=== PATIENT | male | born 1940 | race Caucasian/White ===

== ENCOUNTER 2017-07-21 15:06 | Emergency (ER) | payer MEDICARE, OTHER ==
[2017-07-21 16:00] LABS: #Eosinphils 0.1 thou/uL (0.0-0.7); #Lymphocytes 1.2 thou/uL (1.20-3.40); #Monocytes 0.6 thou/uL (0.11-0.59); %Basophils 0.4 % (0.0-1.0); %Eosinophils 1.7 % (0.0-10.0); %Lymphocytes 17.2 % (21.0-51.0); %Monocytes 8.5 % (0.0-10.0); %Neutrophils 72.2 % (42.0-75.0); Hemoglobin 14.8 g/dL (14.0-18.0); Mean Corpuscular HGB CONC 33.4 g/dL (32.0-36.0); Mean Corpuscular Hemoglobin 31.9 pg (27.0-31.0); Mean Corpuscular Volume 95.6 fl (80.0-94.0); Mean Platelet Volume 6.5 fL (7.4-10.4); Platelet Count 212 thou/uL (130-400); RBC Distribution Width 12.6 % (11.5-14.5); Red Blood Cell (RBC) Count 4.63 mill/uL (4.70-6.10)
--- NOTE | 2017-07-21 16:20 | CT ---
CT BRAIN WITHOUT CONTRAST: 07/21/17 HISTORY: Injury, syncope, fall, headache. FINDINGS: Comparison made with exam of 05/27/16. No evidence of acute infarct, hemorrhage, midline shift of abnormal extra-axial fluid collections are seen. The ventricular size is stable and the basilar cisterns patent. The bony calvarium is intact. The visualized paranasal sinuses and mastoid air cells are well aerated. There is small soft tissue h ematoma in the left frontal scalp. IMPRESSION: No CT evidence of acute intracranial process. POS: [facility]
--- NOTE | 2017-07-21 16:22 | CT ---
CT CERVICAL SPINE WITHOUT CONTRAST: 07/21/17 HISTORY: Trauma, syncopal episode. COMPARISON: CT cervical spine 01/22/16. FINDINGS: Mastoids are clear. Visualized sphenoid sinuses are unremarkable. Odontoid process is intact. The cervical spine is without acute fracture or malalignment. Moderate degenerative disc space disease at C5-6 and C6-7. Prominent venous eldridge left occipital bone. Thyroid is unremarkable. Lung apices are clear. IMPRESSION: No acute fracture or malalignment cervical spine. POS: [facility]
[2017-07-21 16:26] LABS: ALT (SGPT) 13 U/L (8-55); AST (SGOT) 12 U/L (5-34); Alkaline Phosphatase 55 U/L (40-150); Anion Gap 12 mmol/L (10-20); BUN (Urea Nitrogen) 19 mg/dL (8.4-25.7); Bilirubin, Total 0.7 mg/dL (0.2-1.2); Calc. Creatinine Clearance 0 mL/min (70-130); Calcium 9.3 mg/dL (7.8-10.44); Carbon Dioxide 28 mmol/L (23-31); Chloride 105 mmol/L (98-107); Estimated GFR-MDRD 80; Globulin 2.8 g/dL (2.4-3.5); Glucose 89 mg/dL (83-110); Protein, Total 6.8 g/dL (5.8-8.1); Sodium 141 mmol/L (136-145)
== END 2017-07-21 17:07 | disposition home or self-care (01) ==
LOC: ERS 15:06
DX: S01.81XA Laceration without foreign body of other part of head, initial encounter (principal); E78.5 Hyperlipidemia, unspecified; F32.9 Major depressive disorder, single episode, unspecified; I25.2 Old myocardial infarction; I10 Essential (primary) hypertension; N40.0 Benign prostatic hyperplasia without lower urinary tract symptoms; W19.XXXA Unspecified fall, initial encounter; Y92.000 Kitchen of unspecified non-institutional (private) residence as the place of occurrence of the external cause
CPT/HCPCS: 70450; 72125; 80053; 85025; 93005; 94760

== ENCOUNTER 2018-01-09 18:37 | Observation (INO) | payer MEDICARE, OTHER ==
--- NOTE | 2018-01-09 19:56 | RAD ---
FRONTAL VIEW CHEST: 01/09/18 Reference made to 01/12/16. INDICATION: Altered mental status, headache. FINDINGS: Postoperative cardiomediastinal silhouette is stable. There is interstitial prominence of the lungs, without lobar consolidation. No significant effusion or discrete pneumothorax. IMPRESSION: Stable postoperative chest. POS: [facility]
[2018-01-09 19:57] LABS: #Eosinphils 0.2 thou/uL (0.0-0.7); #Lymphocytes 1.5 thou/uL (1.20-3.40); #Monocytes 0.6 thou/uL (0.11-0.59); #Neutrophils 4.3 thou/uL (1.40-6.50); %Basophils 0.3 % (0.0-1.0); %Eosinophils 2.5 % (0.0-10.0); %Lymphocytes 22.7 % (21.0-51.0); %Monocytes 8.8 % (0.0-10.0); %Neutrophils 65.6 % (42.0-75.0); Hemoglobin 14.6 g/dL (14.0-18.0); Mean Corpuscular HGB CONC 34.6 g/dL (32.0-36.0); Mean Corpuscular Hemoglobin 31.9 pg (27.0-31.0); Mean Corpuscular Volume 92.1 fL (78.0-98.0); Platelet Count 196 thou/uL (130-400); RBC Distribution Width 12.2 % (11.5-14.5); Red Blood Cell (RBC) Count 4.57 mill/uL (4.70-6.10); White Blood Cell (WBC) Count 6.6 thou/uL (4.8-10.8)
--- NOTE | 2018-01-09 20:14 | CT ---
CT OF HEAD NONCONTRAST: 01/09/18 INDICATION: Altered mental status. COMPARISON: 07/21/17. FINDINGS: Parenchymal volume loss is present, age related. There is appropriate size of ventricular system. The re is no acute intracranial hemorrhage, mass effect or midline shift. Minimal chronic ischemic diseas e is seen within the cerebral white matter. Mild scattered paranasal sinus mucosal thickening is pres ent. IMPRESSION: No acute intracranial hemorrhage or mass effect. No significant interval detrimental change, when referencing 07/21/[address] exam. POS: [facility]
[2018-01-09 20:18] LABS: ALT (SGPT) 19 U/L (8-55); AST (SGOT) 15 U/L (5-34); Acetaminophen Less than 6.0 mcg/mL (10.0-30.0); Albumin 4.1 g/dL (3.4-4.8); Alcohol Less than 10 mg/dL (Less than 10); Alkaline Phosphatase 50 U/L (40-150); Anion Gap 16 mmol/L (10-20); BUN (Urea Nitrogen) 10 mg/dL (8.4-25.7); Bilirubin, Total 0.8 mg/dL (0.2-1.2); CK (CPK) 34 U/L (30-200); Calc. Creatinine Clearance 0 mL/min (70-130); Calcium 9.1 mg/dL (7.8-10.44); Carbon Dioxide 20 mmol/L (23-31); Chloride 108 mmol/L (98-107); Estimated GFR-MDRD 89; Globulin 2.5 g/dL (2.4-3.5); Glucose 99 mg/dL (83-110); Potassium 3.9 mmol/L (3.5-5.1); Protein, Total 6.6 g/dL (5.8-8.1); Salicylate Less than 8.0 mg/dL (15.0-30.0); Sodium 140 mmol/L (136-145)
[2018-01-09 20:22] LABS: CKMB 0.8 ng/mL (0-6.6); Troponin I Less than 0.010 ng/mL (< 0.028)
[2018-01-09 20:34] LABS: Bilirubin Small (Negative); Blood, Urine Negative (Negative); Clarity CLEAR (Clear); Glucose, Urine (Dipstick) Negative (Negative); Leukocyte Negative (Negative); Nitrite Negative (Negative); Protein, Urine (Dipstick) 30 mg/dL (Neg-Trace); Specific Gravity, Urine 1.024 (1.002-1.036)
[2018-01-09 20:36] LABS: Bacteria/HPF None Seen HPF (None Seen); Hyaline Casts/LPF 7-10 HYALINE CAST LPF (0-3 Hyaline); Pathc Cast-AUWi Flag 0.43 (0-2.49); RBC/HPF 0-3 HPF (0-3); Squamous Epithelial 0-3 HPF (0-3); WBC/HPF 0-3 HPF (0-3)
[2018-01-09 20:51] LABS: Amphetamine Not Detected (NotDetected); Barbiturates Screen Not Detected (NotDetected); Benzodiazepine Screen Not Detected (NotDetected); Cocaine Metabolite Screen Not Detected (NotDetected); Medtox Control Line Valid? VALID (VALID); Medtox Reader # READER 4; Methadone Not Detected (NotDetected); Methamphetamine Not Detected (NotDetected); Opiate Screen Not Detected (NotDetected); Oxycodone Screen Not Detected (NotDetected); Phencyclidine (PCP) Not Detected (NotDetected); THC/Cannabinoid Screen Not Detected (NotDetected); Tricyclic Screen Not Detected (NotDetected)
[2018-01-10 00:04] VITALS: BMI 37.7
[2018-01-10] MEDS ORDERED: Ondansetron PF 4 MG/2 ML Vial IVP PRN (00:21)
--- NOTE | 2018-01-10 03:13 | HP ---
CODE STATUS: FULL CODE. TIME OF EVALUATION: 10:30 p.m. PRIMARY CARE PHYSICIAN: Dr. Ousmane Mercer. CHIEF COMPLAINT: Headache and memory loss. HISTORY OF PRESENT ILLNESS: A 77-year-old male patient with past medical history of dementia, hyperlipidemia, WI, BPH, history of hypertension who came to the hospital after having an episode of having memory loss for about 4 hours , he called his son and reported that he had no recall of any events from the period of time over about 9 a.m. 12, no clear triggers, no alleviating factors. There were no any other associated symptoms of headache, symptoms were severe , symptoms have improved by itself. Sudden onset. REVIEW OF SYSTEMS: Constitutional: No fever or chills. Generalized weakness. Respiratory: No cough, sputum production, shortness of breath. Cardiovascular: No chest pain, palpitations, shortness of breath. Gastrointestinal: No nausea, vomiting, diarrhea or abdominal pain. 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 Loss of memory as described in HPI. Genitourinary: No burning on urination. Extremities: No leg swelling. All other systems were reviewed and negative except for the findings mentioned above. PAST MEDICAL HISTORY: As been mentioned in the HPI. PAST SURGICAL HISTORY: Coronary artery bypass graft surgery x3 vessels. PSYCHIATRIC HISTORY: No history of suicidal ideation. Patient has a history of depression. SOCIAL HISTORY: Patient denies alcohol use. No drugs. No smoking history. DRUG ALLERGIES: No known drug allergies. REPORTED MEDICATIONS: Amlodipine, benazepril, aspirin, carvedilol, cholecalciferol, clopidogrel, cyanocobalamin, donepezil, doxylamine succinate, escitalopram oxalate, finasteride, furosemide, glucosamine, levetiracetam, levothyroxine, multivitamin, atorvastatin, tamsulosin, fish oil. PHYSICAL EXAMINATION: VITAL SIGNS: On presentation, blood pressure 147/88 with heart rate 62, respiratory rate was 18, temperature 98.9, pain 0/10, oxygen saturation 92% on room air. GENERAL APPEARANCE: The patient is alert, oriented, no acute distress. HEENT: Eyes, normal conjunctivae. Moist oral mucosa. Anicteric. NECK: No JVD. RESPIRATORY: Bilateral air entry. No rales, no wheezing. Symmetrical expansion. CARDIOVASCULAR: Normal rate, regular rhythm. No murmurs, no gallop, no edema. ABDOMEN: Soft, normal bowel sounds. MUSCULOSKELETAL: Baseline range of motion and strength. No tenderness. SKIN: Warm and intact. No palmar, no rash, no redness. NEUROLOGIC: Baseline sensorium. No evidence of any new focal weakness. Baseline speech. Cranial nerves seem to be intact. PSYCHIATRIC: The patient is in good mood. No anxiety. Oriented. Optimal judgment. LABORATORY DATA: EKG was reviewed. The patient has sinus rhythm with first degree AV block, inferior infarct, age undetermined. Ventricular rate 64, SD 268, QRS 100, QT corrected 435. X-ray was reviewed. The patient has stable postoperative chest. The labs were reviewed. The patient has normal white count, hemoglobin 14.6, platelet count 196. Sodium 140, potassium 3.9, chloride 108, carbon dioxide 20, anion gap 16, BUN 10, creatinine 0.8, GFR 89. Troponin is negative. Urine was negative. Acetaminophen less than 6. Rest of toxicology was negative. ASSESSMENT AND PLAN: The patient will be placed in the hospital with following medical problems: 1. Transient global amnesia, period of 4 hours, symptoms have resolved, could be secondary to a TIA. A stroke workup has been done. We will follow and will treat accordingly. 2. Uncontrolled hypertension with systolic 147, reconcile home medications, will allow permissive hypertension given acute neurological symptoms. 3. History of hyperlipidemia, reconcile home medication, low cholesterol diet is advised. 4. History of coronary artery disease, this is chronic, stable, reconcile home meds. 5. Deep venous thrombosis prophylaxis. 6. Risk assessment, the patient is high risk due to presentation with new neurological findings. TOM
[2018-01-10 05:49] LABS: #Eosinphils 0.2 thou/uL (0.0-0.7); #Lymphocytes 1.5 thou/uL (1.20-3.40); #Monocytes 0.6 thou/uL (0.11-0.59); #Neutrophils 3.1 thou/uL (1.40-6.50); %Basophils 0.2 % (0.0-1.0); %Eosinophils 3.6 % (0.0-10.0); %Lymphocytes 27.4 % (21.0-51.0); %Monocytes 11.4 % (0.0-10.0); %Neutrophils 57.3 % (42.0-75.0); Hemoglobin 13.6 g/dL (14.0-18.0); Mean Corpuscular HGB CONC 34.8 g/dL (32.0-36.0); Mean Corpuscular Hemoglobin 32.2 pg (27.0-31.0); Mean Corpuscular Volume 92.7 fL (78.0-98.0); Mean Platelet Volume 6.1 fL (7.4-10.4); Platelet Count 172 thou/uL (130-400); RBC Distribution Width 12.2 % (11.5-14.5); Red Blood Cell (RBC) Count 4.23 mill/uL (4.70-6.10); White Blood Cell (WBC) Count 5.4 thou/uL (4.8-10.8)
[2018-01-10 06:17] LABS: Anion Gap 12 mmol/L (10-20); BUN (Urea Nitrogen) 11 mg/dL (8.4-25.7); Calc. Creatinine Clearance 143 mL/min (70-130); Calcium 9.2 mg/dL (7.8-10.44); Carbon Dioxide 25 mmol/L (23-31); Cardiac Risk 3.4 (Less than 4.5); Chloride 107 mmol/L (98-107); Cholesterol 134 mg/dl (< 200 Desired); Estimated GFR-MDRD Greater than 90; Glucose 87 mg/dL (83-110); HDL Cholesterol 40 mg/dL (>60 Neg Risk); LDL Cholesterol, Calculated 59 mg/dL; Potassium 3.9 mmol/L (3.5-5.1); Sodium 140 mmol/L (136-145); Triglycerides 176 mg/dL (Less than 150)
[2018-01-10] MEDS ORDERED: Doxylamine 25 MG TAB PO PRN (08:11)
[2018-01-10] MEDS ORDERED: Enoxaparin Sodium 40 MG/0.4 ML SYRINGE SC SCH (09:00)
[2018-01-10] MEDS ORDERED: Clopidogrel Bisulfate 75 MG TAB PO SCH (09:00)
[2018-01-10] MEDS ORDERED: levETIRAcetam 500 MG TAB PO SCH (09:00)
[2018-01-10] MEDS ORDERED: Glucosamine/D3/Boswellia Serra [Glucosamine Daily Complex Tab] PO SCH (09:00)
[2018-01-10] MEDS ORDERED: Multivitamin W/ Minerals 1 TAB PO SCH (09:00)
[2018-01-10] MEDS ORDERED: Levothyroxine Sodium 75 MCG TAB PO SCH (09:00)
[2018-01-10] MEDS ORDERED: Amlodipine 5 mg/Benazepril 20 mg CAP PO SCH (09:00)
[2018-01-10] MEDS ORDERED: Carvedilol 25 MG TAB PO SCH (09:00)
[2018-01-10] MEDS ORDERED: Finasteride 5 MG TAB PO SCH (09:00)
[2018-01-10] MEDS ORDERED: Aspirin 325 mg Enteric Coated Tablet PO SCH (09:00)
[2018-01-10] MEDS ORDERED: Fish Oil 1,000 MG CAP PO SCH (09:00)
[2018-01-10] MEDS ORDERED: Cyanocobalamin (Vitamin B-12) 1,000 MCG TAB PO SCH (09:00)
[2018-01-10] MEDS ORDERED: Escitalopram Oxalate 20 mg Tablet PO SCH (09:00)
[2018-01-10] MEDS ORDERED: Furosemide 20 MG TAB PO SCH (09:00)
[2018-01-10] MEDS ORDERED: Aspirin 81 mg Enteric Coated Tablet PO SCH (09:00)
--- NOTE | 2018-01-10 13:17 | MRI ---
MRI BRAIN NONCONTRAST: HISTORY: 77-year-old male with TIA. FINDINGS: The ventricles are normal in size and configuration. There is no restricted diffusion, midline shift or any other mass effect, recent intraaxial hemorrhage, or extraaxial fluid collection. There are s mall T2-hyperintensities in the cerebral white matter consistent with mild chronic ischemic white mat ter changes due to mild microvascular atherosclerosis. IMPRESSION: 1. Mild chronic ischemic white matter changes. 2. Otherwise negative. jn[] POS: [facility]
--- NOTE | 2018-01-10 13:21 | ULT ---
ULTRASOUND DOPPLER DUPLEX CAROTID: Date: 01/10/18 HISTORY: 77-year-old male with TIA. TECHNIQUE: Rivas scale, color flow, and spectral analysis, of major arteries of neck. FINDINGS: Tiny focal atheromatous plaque is visualized at the bilateral carotid bulbs. Highest peak systolic velocities in internal carotid arteries are 85 cm/s on the right and 75 cm/s on the left. ICA/CCA ratios are 1.1 on the right and 1.0 on the left. Left vertebral artery flow is antegrade. There was difficulty in picking up Doppler signal from the right vertebral artery. In the vicinity of the right vertebral artery, there is arterial flow that is consistently caudad in direction. IMPRESSION: 1. Possible retrograde flow in the right vertebral artery (alternatively, this could be a muscular b ranch of the right vertebral artery, with occluded or very diminutive right vertebral artery). This s uggests the possibility of right subclavian steal syndrome. Consider further evaluation with CT angio gram of the neck, with attention to the right vertebral artery and right subclavian artery (Note to C T technologist: The IV contrast injection should be performed in the contralateral left upper extrem ity.). 2. No hemodynamically significant stenosis in the proximal internal carotid arteries. 3. Tiny, minimal plaque at the bilateral carotid bulbs. CODE T. POS: [facility]
--- NOTE | 2018-01-10 13:31 | CON ---
DATE OF CONSULTATION: 01/10/2018 CHIEF COMPLAINT: Transient global amnesia. HISTORY OF PRESENT ILLNESS: The patient reports he clearly does not remember what happened to him, b ut up to 4 hours yesterday, he had memory loss. He did not know what happened between a certain yumi od of the time during the day. He does remember having mild headache. He normally has intermittent headaches, but he does not think these are migraine headaches. Patient did not have any weakness or numbness. PAST MEDICAL HISTORY: He has dementia, hyperlipidemia, myocardial infarction, and benign prostatic h ypertrophy as noted in his chart. PAST SURGICAL HISTORY: Coronary artery bypass graft in the past, three-vessel bypass and he has bila teral knee problems and left knee surgery. SOCIAL HISTORY: He lives with his family, does not smoke or drink. MEDICATIONS: At home, he has a very long list of medications including amlodipine and benazepril com bination, aspirin 81 mg per day, carvedilol, cholecalciferol, Plavix, ____ Vitamin B12, donepezil, do xylamine, Lexapro, finasteride, furosemide, glucosamine, Keppra twice daily, levothyroxine, multivita min, atorvastatin, Flomax plus fish oil. ALLERGIES: No known drug allergies. REVIEW OF SYSTEMS: Pulmonary: Normal. No cough or shortness of breath. Cardiovascular: Negative for any acute chest pain or palpitations. Gastrointestinal: Negative for any stomach problems such as diarrhea, vomiting or nausea. Genitourinary: Negative for any bladder problems except increased frequency. Hematological: Negative. Neurological: Positive for transient loss of memory for about 4 hours. LABORATORY DATA AND IMAGING: His white count is 5.4, hemoglobin 13.6, hematocrit 39.2, platelet coun t 172. Chemistry: Sodium 140, potassium 3.9, chloride 107, bicarbonate 25, BUN 11, creatinine 0.82. Triglycerides 176, cholesterol 134, LDL 59, HDL 50. TSH 2.8. MRI report is pending. CT scan of t he brain showed no acute infarct and compared to prior CT, there is no change compared to the CT from July. Carotid Doppler report is also pending. Chest x-ray is normal except for postoperative c hanges. PHYSICAL EXAMINATION: VITAL SIGNS: His blood pressure is 142/84, pulse 58, temperature 98.3, respiratory rate 16, O2 sats 91. GENERAL APPEARANCE: Well-built, well-nourished, very pleasant man. CHEST: Clear vesicular breathing. CARDIOVASCULAR: S1, S2 heard, no murmurs. ABDOMEN: Soft, nontender. NEUROLOGICAL: Higher intellectual functions, normal orientation to time, place and person, appropria te conversation. Cranial nerves II through XII normal. Normal extraocular movements. Pupils are re active to light. Normal strength of facial muscles bilaterally. No facial asymmetry. Tongue midlin e, no atrophy noted. Normal hearing to finger rub bilaterally. Normal elevation of palate. Motor e xamination: Bulk normal, tone normal, strength 5/5 in iliopsoas, hamstrings, quadriceps, ankle dorsi flexion, plantar flexion, deltoid, biceps, triceps, wrist extension and flexion, finger extension and flexion bilaterally. Deep tendon reflexes are 2+ throughout in upper and lower extremities. Sensor y: Normal touch, pinprick, proprioception and vibration bilaterally. Cerebellar: Normal finger-to- nose and [id number]. IMPRESSION: The patient is a 77-year-old man with a history of transient loss of memory for about 4 hours or so. He seems to be having other neurological issues from the past and has dementia and is o n donepezil and is on Keppra as well for seizures possibly. At this time, his examination is normal. He does have stroke risk factors including coronary artery disease, hypertension. His neurological examination shows decrease in vibration and proprioception distally in lower extremities and he may have mild neuropathy, which needs to be followed up with Dr. Mercer. The diagnosis is most consiste nt with transient global amnesia. RECOMMENDATIONS: I will review MRI report and if MRI is negative for any acute stroke, he can go juanita e from a neurologic standpoint and follow up with Dr. Mercer and I will also request another lab for B12 and folate.
[2018-01-10 15:40] LABS: Vitamin B12 Greater than 2000 pg/mL (211-911)
[2018-01-10 15:49] VITALS: BP 146/80; TEMP 98
[2018-01-10] MEDS ORDERED: Prevnar 13-Val Conj/PF 0.5 ML SYRINGE IM ONE (16:30)
[2018-01-10] MEDS ORDERED: Donepezil HCl 10 MG TAB PO SCH (21:00)
[2018-01-10] MEDS ORDERED: Tamsulosin HCl 0.4 MG CAP PO SCH (21:00)
[2018-01-10] MEDS ORDERED: Atorvastatin Calcium 40 MG TAB PO SCH (21:00)
--- NOTE | 2018-01-10 22:17 | DIS ---
DATE OF ADMISSION: 01/09/2018 DATE OF DISCHARGE: 01/10/2018 PRIMARY CARE PROVIDER: Dr. Parag Yadav. DISCHARGE DIAGNOSES: 1. Transient global amnesia. 2. Possible retrograde flow in the right vertebral artery. CONDITION OF PATIENT AT THE TIME OF DISCHARGE: Stable. I assessed Mr. Lo on the day of discharg e. He denies any chest pain or shortness of breath. Vital signs are stable. S1 and S2 are heard, r egular. Lungs are clear to auscultation bilaterally. CONSULTATION DURING THIS HOSPITALIZATION: Neurology, Dr. Fariha Lee. DISCHARGE MEDICATIONS: Amlodipine/benazepril 5/20 mg daily, aspirin 81 mg daily, atorvastatin 40 mg at bedtime, Coreg 25 mg 2 times a day, vitamin D3 1000 units daily, Plavix 75 mg daily, vitamin B12 1 000 mcg daily, donepezil 10 mg at bedtime, doxylamine 25 mg at bedtime as needed, Lexapro 20 mg daily , finasteride 5 mg daily, fish oil 1000 mg daily, furosemide 20 mg daily, glucosamine complex 1 table t daily, Keppra 1000 mg 2 times a day, Synthroid 75 mcg daily, multivitamins 1 tablet daily and Floma x 0.4 mg at bedtime. HOSPITAL COURSE: Mr. Lo is a pleasant 77-year-old gentleman who was admitted to [facility] on 01/09/2018 for transient global amnesia. Please refer to Dr. Fofana's history and physical note dated 01/10/2018 for further details. He was seen by Neurology Service. MRI of t he brain showed mild chronic ischemic white matter changes, otherwise negative. Carotid Dopplers vitaliy wed possible retrograde flow in the right vertebral artery which suggests the possibility of right elise bclavian steal syndrome. Alternatively, this could be muscular branch of the right vertebral artery with occluded or very diminutive right vertebral artery according to radiologist. Radiologist recomm ends further evaluation with CT angiogram of the neck with attention to the right vertebral artery an d right subclavian artery. Patient does not know if he had this test done in the past. I have advis ed him to follow up with his primary care provider for the same. He also had a 2D echocardiogram. At the time of this dictation, the report is pending. He is advise d to follow up with his primary care provider for the 2D echocardiogram report as well. On the day of discharge, he has a normal basic metabolic profile, elevated triglycerides of 176, chol esterol 134, LDL cholesterol 59, HDL cholesterol 40, folate 14.90, and vitamin B12 level greater than 2000. DISCHARGE DESTINATION: Home.
--- NOTE | 2018-01-23 13:59 | EKG ---
Test Reason : Blood Pressure : / mmHG Vent. Rate : 064 BPM Atrial Rate : 064 BPM P-R Int : 268 ms QRS Dur : 100 ms QT Int : 422 ms P-R-T Axes : 093 002 011 degrees QTc Int : 435 ms Sinus rhythm with 1st degree A-V block Inferior infarct , age undetermined Abnormal ECG Confirmed by MONIKA HILL, ALAN ([id number]), greeting card editor ALY CHRIS ([id number]) on 01/23/2018 1:59:19 PM Referred By: Confirmed By:ALAN FRANK MD
== END 2018-01-10 18:27 | disposition home or self-care (01) ==
LOC: ERS 18:37 → 2SE 21:10
PROVIDERS: ADMIT Hospitalist; ATTEND Hospitalist
DX: G45.4 Transient global amnesia (principal); E78.5 Hyperlipidemia, unspecified; F03.90 Unspecified dementia, unspecified severity, without behavioral disturbance, psychotic disturbance, mood disturbance, and anxiety; I25.2 Old myocardial infarction; I25.10 Atherosclerotic heart disease of native coronary artery without angina pectoris; I10 Essential (primary) hypertension; Z79.82 Long term (current) use of aspirin; Z79.899 Other long term (current) drug therapy; Z79.52 Long term (current) use of systemic steroids; Z79.02 Long term (current) use of antithrombotics/antiplatelets; Z95.1 Presence of aortocoronary bypass graft
CPT/HCPCS: 70450; 70551; 71045; 80048; 80061; 80306; 80307; 82550; 82553; 82607; 82746; 84484; 85025; 90670; 93005; 93306; 93880; 94760; 96372; 99285; G0009; G0378 ×2; 36415; 80053; 81003; 81015; 84443; 90471; J1650